=== PATIENT | female | born 1965 | race African-American/Black ===

== ENCOUNTER 2017-09-14 12:51 | Emergency (ER) | payer SELFPAY ==
[~2017-09-14] VITALS: Ht 162.6 cm; Wt 99.8 kg
[2017-09-14 13:20] VITALS: BP 142/93
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
[2017-09-14] MEDS ORDERED: CYCL10TA2 PO (15:36)
[2017-09-14] MEDS ORDERED: DICL50TA4 PO (15:36)
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
== END 2017-09-14 15:42 | disposition home or self-care (01) ==
LOC: ER 13:08
DX: S93.601A Unspecified sprain of right foot, initial encounter (principal); M54.5 Low back pain; R07.89 Other chest pain; I10 Essential (primary) hypertension; V43.53XA Car driver injured in collision with pick-up truck in traffic accident, initial encounter; Y93.I9 Activity, other involving external motion; Y92.410 Unspecified street and highway as the place of occurrence of the external cause; Y99.8 Other external cause status
CPT/HCPCS: 71020; 72100; 73630; 99284

== ENCOUNTER 2018-07-01 03:23 | Emergency (ER) | payer SELFPAY ==
[~2018-07-01] VITALS: Ht 165.1 cm; Wt 111.1 kg
[~2018-07-01 03:23] MED LIST: CYCL10TA2 PO; DICL50TA4 PO
[2018-07-01 04:12] LABS: BASO # 0.1 x10^3/uL (0.0-0.2); BASO % 1 % (0-3); EOS # 0.3 x10^3/uL (0.0-0.7); EOS % 4 % (0-3); HEMATOCRIT 37.5 % (36.0-47.0); LYMPH # 2.7 x10^3/uL (1.0-4.8); LYMPH % 45 % (24-48); MEAN CORPUSCULAR HEMOGLOBIN 33 pg (25-35); MEAN CORPUSCULAR HGB CONC 35 g/dL (31-37); MEAN CORPUSCULAR VOLUME 96 fL (79-100); MONO # 0.4 x10^3/uL (0.0-1.1); MONO % 7 % (0-9); NEUT # 2.6 x10^3uL (1.8-7.7); NEUT % 43 % (31-73); PLATELET COUNT 317 x10^3/uL (140-400); RED BLOOD COUNT 3.89 x10^6/uL (3.50-5.40); RED CELL DISTRIBUTION WIDTH 13.6 % (11.5-14.5); WHITE BLOOD COUNT 6.1 x10^3/uL (4.0-11.0)
[2018-07-01] MEDS: ASPIRIN CHEWABLE 81 MG TABLET. PO ONE (04:25)
[2018-07-01 04:28] LABS: CALCIUM 9.4 mg/dL (8.5-10.1); GFR 69.9; POTASSIUM 3.7 mmol/L (3.5-5.1)
[2018-07-01 04:34] LABS: ALBUMIN 3.5 g/dL (3.4-5.0); ALBUMIN/GLOBULIN RATIO 0.7 (1.0-1.7); TOTAL BILIRUBIN 0.3 mg/dL (0.2-1.0); TOTAL PROTEIN 8.3 g/dL (6.4-8.2)
[2018-07-01 04:50] VITALS: BP 135/73
--- NOTE | 2018-07-01 04:51 | RAD ---
INDICATION: left arm numbness COMPARISON: None. TECHNIQUE: Axial CT images obtained through the head without intravenous contrast. One or more of the following individualized dose reduction techniques were utilized for this examination: 1. Automated exposure control; 2. Adjustment of the mA and/or kV according to patient size; 3. Use of iterative reconstruction technique. FINDINGS: No intracranial hemorrhage. No midline shift. Basal cisterns patent. Ventricles and sulci are unremarkable. No acute osseous abnormality. Orbits and paranasal sinuses unremarkable. IMPRESSION: 1. No acute intracranial hemorrhage. Electronically signed by: Fredy Britt MD (07/01/2018 4:47 AM) [facility]
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
--- NOTE | 2018-07-01 07:35 | EKG ---
[facility] [address] [place] [address] Test Date: 2018-07-01 Test Time: 03:33:35 Pat Name: KAYLA MEDRANO Department: Room: Gender: F Fur Dyer: : 1965 Requested By: LEWIS SAEED Order Number: [id number] Reading MD: Vladimir Garcia MD Measurements Intervals [place] Rate: 78 P: 39 [place]: 158 QRS: 0 QRSD: 82 T: 5 QT: 368 QTc: 422 Interpretive Statements SINUS RHYTHM Electronically Signed On 07-01-2018 13:56:43 CDT by Vladimir Garcia MD
== END 2018-07-01 05:08 | disposition home or self-care (01) ==
LOC: ER 03:23
DX: R20.0 Anesthesia of skin (principal); I10 Essential (primary) hypertension; Z98.51 Tubal ligation status
CPT/HCPCS: 36415; 70450; 80053; 84484; 85025; 93005; 99285-25